=== PATIENT | female | born 1945 | race Caucasian/White ===

== ENCOUNTER 2017-09-26 10:53 | Outpatient (CLI) | payer MEDICARE, OTHER | END 2017-09-26 10:54 | disposition home or self-care (01) | LOC: BICCT 10:53 | PROVIDERS: ATTEND Obstetrics & Gynecology | DX: N20.0 Calculus of kidney (principal); R10.9 Unspecified abdominal pain | CPT/HCPCS: 74176 ==

== ENCOUNTER 2018-03-16 05:47 | Emergency (ER) | payer MEDICARE, OTHER ==
[2018-03-16 06:23] LABS: Bilirubin Large (Negative); Blood, Urine Moderate (Negative); Clarity TURBID (Clear); Glucose, Urine (Dipstick) 250 mg/dL (Negative); Leukocyte Large (Negative); Nitrite Positive (Negative); Protein, Urine (Dipstick) 300 mg/dL (Neg-Trace); Urobilinogen > or = 8.0 mg/dL (0.2-1.0)
[2018-03-16 06:27] LABS: #Eosinphils 0.2 thou/uL (0.0-0.7); #Lymphocytes 1.6 thou/uL (1.20-3.40); #Monocytes 0.9 thou/uL (0.11-0.59); #Neutrophils 7.6 thou/uL (1.40-6.50); %Basophils 0.2 % (0.0-1.0); %Eosinophils 2.3 % (0.0-10.0); %Lymphocytes 15.8 % (21.0-51.0); %Monocytes 8.3 % (0.0-10.0); %Neutrophils 73.4 % (42.0-75.0); Hemoglobin 12.3 g/dL (12.0-16.0); Mean Corpuscular HGB CONC 33.4 g/dL (32.0-36.0); Mean Corpuscular Volume 86.9 fL (78.0-98.0); Mean Platelet Volume 7.7 fL (7.4-10.4); Platelet Count 257 thou/uL (130-400); RBC Distribution Width 12.4 % (11.5-14.5); Red Blood Cell (RBC) Count 4.26 mill/uL (4.20-5.40); White Blood Cell (WBC) Count 10.3 thou/uL (4.8-10.8)
[2018-03-16 06:28] LABS: Bacteria/HPF 2+ HPF (None Seen); Hyaline Casts/LPF 7-10 HYALINE CAST LPF (0-3 Hyaline); Pathc Cast-AUWi Flag 2.43 (0-2.49)
[2018-03-16 06:29] LABS: Yeast-AUWi Flag 5090.2 (0-25.0)
[2018-03-16 06:32] LABS: Yeast-All Forms None Seen HPF (None Seen)
[2018-03-16 06:49] LABS: ALT (SGPT) 72 U/L (8-55); AST (SGOT) 64 U/L (5-34); Albumin 4.4 g/dL (3.4-4.8); Alkaline Phosphatase 72 U/L (40-150); Anion Gap 14 mmol/L (10-20); BUN (Urea Nitrogen) 24 mg/dL (9.8-20.1); Bilirubin, Total 0.8 mg/dL (0.2-1.2); Calc. Creatinine Clearance 0 mL/min (70-130); Carbon Dioxide 22 mmol/L (23-31); Chloride 101 mmol/L (98-107); Estimated GFR-MDRD 38; Globulin 3.1 g/dL (2.4-3.5); Glucose 328 mg/dL (83-110); Lipase 21 U/L (8-78); Potassium 4.1 mmol/L (3.5-5.1); Protein, Total 7.5 g/dL (6.0-8.3); Sodium 133 mmol/L (136-145)
[2018-03-16] MEDS ORDERED: cefTRIAXone\\ROCEPHIN 1 GM VIAL ONE (07:40)
--- NOTE | 2018-03-16 10:49 | CT ---
PRELIMINARY REPORT/[facility]/EMERGENTY AFTER-HOURS PROCEDURE CT Abdomen and Pelvis Without Intravenous Contrast EXAM DATE/TIME: 03/16/2018 7:01 AM CLINICAL HISTORY: 72 years old, female; Pain; Abdominal pain; Localized; Lower; Prior surgery; Patient HX: F72 presents to the ed C/O groin pain for several months, worsening today. PT reports nausea when she stands up. Dx with kidney stone 3 months [employer] boat [employer]. PT reports HX of hysterectomy and exploratory surgery, reports ovaries were removed. TECHNIQUE: Axial computed tomography images of the abdomen and pelvis without intravenous contrast. Coronal reformatted images were created and reviewed. COMPARISON: No relevant prior studies available. FINDINGS: Lower thorax: The visualized portions of the lung bases are normal. ABDOMEN: Liver: There is a diffuse decrease in hepatic parenchymal density, consistent with fatty infiltration . Gallbladder and bile ducts: The gallbladder is normal. There is no evidence of biliary ductal dilatio n. Pancreas: The pancreas appears normal. No ductal dilatation. Spleen: The spleen is normal. Adrenals: The adrenal glands are normal. Kidneys and ureters: There is mild RIGHT hydronephrosis without evidence of obstructing ureteral calc ulus. No LEFT hydronephrosis. There are bilateral nonobstructing renal pelvic calculi. Stomach and bowel: The stomach is normal. The duodenum is unremarkable. The colon is normal. Appendix: No appendix is specifically identified. No associated signs to suggest acute appendicitis. PELVIS: Bladder: The bladder is decompressed but otherwise normal. Reproductive: The uterus is not visualized, and may be atrophic or surgically absent. ABDOMEN and PELVIS: Intraperitoneal space: Normal. No free air. No significant fluid collection. Bones/joints: No acute fracture. No dislocation. Soft tissues: Unremarkable. Vasculature: The vasculature demonstrates diffuse mild atherosclerotic calcification. Lymph nodes: Normal. No enlarged lymph nodes. IMPRESSION: There is mild RIGHT hydronephrosis without evidence of obstructing ureteral calculus. Thank you for allowing us to participate in the care of your patient. Dictated and Authenticated by: Bryan Bowen MD 03/16/2018 7:13 AM Central Time ([place] & [place]) FINAL REPORT CT ABDOMEN AND PELVIS WITHOUT CONTRAST: Date: 03/16/18 FINDINGS/IMPRESSION: I agree with the preliminary report given by Paco. POS: [facility]
== END 2018-03-16 08:00 | disposition home or self-care (01) ==
LOC: ERS 05:47
DX: N39.0 Urinary tract infection, site not specified (principal); M19.90 Unspecified osteoarthritis, unspecified site; E78.5 Hyperlipidemia, unspecified; E11.9 Type 2 diabetes mellitus without complications; F41.9 Anxiety disorder, unspecified; I10 Essential (primary) hypertension; Z79.899 Other long term (current) drug therapy; Z79.82 Long term (current) use of aspirin
CPT/HCPCS: 36415; 74176; 80053; 81003; 81015; 83690; 85025; 87077; 87086; 87186; 96365; J0696

== ENCOUNTER 2018-07-10 16:11 | Emergency (ER) | payer MEDICARE, OTHER ==
[2018-07-10 16:36] LABS: #Monocytes 1.6 thou/uL (0.11-0.59); #Neutrophils 11.7 thou/uL (1.40-6.50); %Basophils 0.3 % (0.0-1.0); %Monocytes 10.3 % (0.0-10.0); %Neutrophils 76.4 % (42.0-75.0); Hemoglobin 11.9 g/dL (12.0-16.0); Mean Corpuscular HGB CONC 33.4 g/dL (32.0-36.0); Mean Corpuscular Hemoglobin 28.9 pg (27.0-31.0); Mean Corpuscular Volume 86.5 fL (78.0-98.0); Mean Platelet Volume 8.1 fL (7.4-10.4); Platelet Count 189 thou/uL (130-400); RBC Distribution Width 12.7 % (11.5-14.5); White Blood Cell (WBC) Count 15.4 thou/uL (4.8-10.8)
[2018-07-10 16:56] LABS: ALT (SGPT) 60 U/L (8-55); AST (SGOT) 41 U/L (5-34); Albumin 4.2 g/dL (3.4-4.8); Alkaline Phosphatase 72 U/L (40-150); Anion Gap 19 mmol/L (10-20); BUN (Urea Nitrogen) 20 mg/dL (9.8-20.1); Bilirubin, Total 1.3 mg/dL (0.2-1.2); Calc. Creatinine Clearance 0 mL/min (70-130); Carbon Dioxide 20 mmol/L (23-31); Chloride 98 mmol/L (98-107); Estimated GFR-MDRD 44; Globulin 3.4 g/dL (2.4-3.5); Glucose 252 mg/dL (83-110); Lipase 10 U/L (8-78); Potassium 4.1 mmol/L (3.5-5.1); Protein, Total 7.6 g/dL (6.0-8.3); Sodium 133 mmol/L (136-145)
[2018-07-10 17:27] LABS: Bilirubin Moderate (Negative); Blood, Urine Moderate (Negative); Clarity CLOUDY (Clear); Glucose, Urine (Dipstick) 250 mg/dL (Negative); Leukocyte Moderate (Negative); Nitrite Negative (Negative); Protein, Urine (Dipstick) 100 mg/dL (Neg-Trace); Specific Gravity, Urine 1.023 (1.002-1.036)
[2018-07-10 17:29] LABS: Bacteria/HPF 4+ HPF (None Seen); Pathc Cast-AUWi Flag 2.17 (0-2.49); Squamous Epithelial 0-3 HPF (0-3)
[2018-07-10 17:38] LABS: WBC/HPF 21-50 HPF (0-3)
[2018-07-10 17:39] LABS: Hyaline Casts/LPF 0-3 HYALINE CAST LPF (0-3 Hyaline)
--- NOTE | 2018-07-10 18:03 | CT ---
NONCONTRAST CT ABDOMEN AND PELVIS 07/10/18 HISTORY: Flank pain with pain in suprapubic region. COMPARISON: 03/16/18. FINDINGS: The liver is borderline enlarged in craniocaudal dimensions measuring 18 cm and demonstrates decrease d attenuation related to diffuse fatty infiltration. There is bilateral perinephric stranding slightly greater on the right. Cortical scarring is again se en involving the posterior mid portion and superior pole of the right kidney. There is mild pelvocali ectasis on the right, but this is similar to prior exams. An approximately 3 mm nonobstructing calcul us is again seen in the superior pole right kidney. No ureteral calculus is seen bilaterally. No izabela nephric fluid collection is identified. However, given asymmetry in inflammatory stranding surroundin g the right kidney, infection/pyelonephritis on the right could not be entirely excluded. There is mi nimal stranding adjacent to the proximal right ureter as well. The urinary bladder is completely decompressed and not well evaluated on this exam. Calcified left hilar lymph node is present with a single calcified granuloma at each lung base. Lung bases otherwise clear. Vascular calcifications are seen in the abdominal aorta involving the iliac arteries. The spleen, pancreas, and bilateral adrenal glands demonstrate a grossly normal nonenhanced CT appear ance. The uterus is not visualized likely related to prior hysterectomy. The appendix is not visualized, but there are no secondary signs to suggest appendicitis. Degenerative changes are seen in the spine. IMPRESSION: 1. Mild inflammatory stranding seen adjacent to each kidney which was also seen on prior exams, but there is slightly greater amount of perinephric stranding on the right. Infection/pyelonephritis on the right could not be excluded based on this examination. 2. No overt hydronephrosis or ureteral calculus is seen. 3. Nonobstructing right renal calculus. 4. Fatty infiltration of the liver with mild hepatomegaly. 5. Prominent vascular calcifications. 6. Hysterectomy. 7. Correlation with urinalysis is recommended. POS: [facility]
== END 2018-07-10 18:04 | disposition home or self-care (01) ==
LOC: ERS 16:11
DX: N12 Tubulo-interstitial nephritis, not specified as acute or chronic (principal); E11.9 Type 2 diabetes mellitus without complications; E78.5 Hyperlipidemia, unspecified; I10 Essential (primary) hypertension; F41.9 Anxiety disorder, unspecified; Z87.891 Personal history of nicotine dependence; Z79.82 Long term (current) use of aspirin; Z79.899 Other long term (current) drug therapy; Z79.84 Long term (current) use of oral hypoglycemic drugs
CPT/HCPCS: 36415; 74176; 80053; 81003; 81015; 83690; 85025; 87077; 87086; 87186

== ENCOUNTER 2019-02-27 13:49 | Emergency (ER) | payer MEDICARE, OTHER ==
--- NOTE | 2019-02-27 15:41 | ULT ---
VENOUS DOPPLER ULTRASOUND OF THE RIGHT LOWER EXTREMITY: 02/27/19 HISTORY: Right lower extremity pain. TECHNIQUE: Wolff scale, with color flow and spectral Doppler imaging of the deep venous system of the right lower extremity was performed. FINDINGS: There is good flow, compression and augmentation noted in the right common femoral, femoral, deep fem oral, popliteal, posterior tibial and greater saphenous veins. Sonographic evaluation of the palpable lump in the dorsal aspect of the right foot demonstrates a com plex mass measuring 9 x 4 x 11 mm of uncertain etiology. This would be better evaluated with an MRI. IMPRESSION: No evidence of DVT in the right lower extremity. POS: [facility]
== END 2019-02-27 16:23 | disposition home or self-care (01) ==
LOC: ERS 13:49
DX: M79.89 Other specified soft tissue disorders (principal); M19.90 Unspecified osteoarthritis, unspecified site; E11.9 Type 2 diabetes mellitus without complications; E78.5 Hyperlipidemia, unspecified; I10 Essential (primary) hypertension; F41.9 Anxiety disorder, unspecified; Z87.891 Personal history of nicotine dependence; Z79.82 Long term (current) use of aspirin; Z79.899 Other long term (current) drug therapy

== ENCOUNTER 2019-05-01 10:15 | Emergency (ER) | payer MEDICARE, OTHER ==
--- NOTE | 2019-05-01 11:59 | RAD ---
EXAM: Portable chest PROVIDED CLINICAL HISTORY: Altered mental status COMPARISON: 07/29/2015 FINDINGS: Cardiac and mediastinal silhouette is within normal limits. No focal consolidation, pleural fluid or pneumothorax evident. IMPRESSION: No evidence for an acute cardiopulmonary process.
--- NOTE | 2019-05-01 12:05 | CT ---
CT BRAIN WITHOUT CONTRAST: HISTORY:Altered mental status. Hallucinations COMPARISON:07/29/2015 FINDINGS: There are foci of decreased attenuation in the periventricular white matter, consistent with chronic small vessel ischemic disease. No evidence of acute infarct, hemorrhage, midline shift or abnormal extra-axial fluid collections is seen. The ventricular size is appropriate and the basilar cisterns are patent. The bony calvarium is intact. The visualized paranasal sinuses and mastoid air cells are well aerated. IMPRESSION: No CT evidence of acute intracranial process.
[2019-05-01 12:37] LABS: #Lymphocytes 0.9 thou/uL (1.20-3.40); #Monocytes 0.9 thou/uL (0.11-0.59); #Neutrophils 8.6 thou/uL (1.40-6.50); %Eosinophils 0.3 % (0.0-10.0); %Lymphocytes 8.7 % (21.0-51.0); Hemoglobin 11.2 g/dL (12.0-16.0); Mean Corpuscular HGB CONC 33.5 g/dL (32.0-36.0); Mean Corpuscular Hemoglobin 29.4 pg (27.0-31.0); Mean Corpuscular Volume 87.8 fL (78.0-98.0); Mean Platelet Volume 8.6 fL (7.4-10.4); Platelet Count 233 thou/uL (130-400); RBC Distribution Width 12.3 % (11.5-14.5); Red Blood Cell (RBC) Count 3.81 mill/uL (4.20-5.40); White Blood Cell (WBC) Count 10.5 thou/uL (4.8-10.8)
[2019-05-01 12:57] LABS: Acetaminophen Less than 6.0 mcg/mL (10.0-30.0); Alcohol Less than 10 mg/dL (Less than 10); Salicylate Less than 8.0 mg/dL (15.0-30.0)
[2019-05-01 12:58] LABS: ALT (SGPT) 24 U/L (8-55); AST (SGOT) 31 U/L (5-34); Albumin 4.1 g/dL (3.4-4.8); Alkaline Phosphatase 73 U/L (40-110); Anion Gap 19 mmol/L (10-20); BUN (Urea Nitrogen) 17 mg/dL (9.8-20.1); Bilirubin, Total 0.5 mg/dL (0.2-1.2); CK (CPK) 207 U/L (29-168); Calc. Creatinine Clearance 0 mL/min (70-130); Calcium 9.3 mg/dL (7.8-10.44); Carbon Dioxide 22 mmol/L (23-31); Chloride 96 mmol/L (98-107); Estimated GFR-MDRD 37; Globulin 2.7 g/dL (2.4-3.5); Glucose 180 mg/dL (83-110); Lipase 18 U/L (8-78); Potassium 3.7 mmol/L (3.5-5.1); Protein, Total 6.8 g/dL (6.0-8.3); Sodium 133 mmol/L (136-145)
[2019-05-01 14:19] LABS: Bilirubin Negative (Negative); Blood, Urine Negative (Negative); Clarity Clear (Clear); Glucose, Urine (Dipstick) 50 mg/dL (Negative); Leukocyte 500 Leu/uL (Negative); Nitrite Negative (Negative); Protein, Urine (Dipstick) 20 mg/dL (Neg-Trace); RBC/HPF 0-3 HPF (0-3); Transitional Epithelial 0-3 HPF (None Seen); Urobilinogen Normal mg/dL (Less than 2); WBC/HPF 21-50 HPF (0-3)
[2019-05-01 14:22] LABS: Bacteria/HPF 1+ HPF (None Seen)
[2019-05-01 14:28] LABS: Amphetamine Not Detected (NotDetected); Barbiturates Screen Not Detected (NotDetected); Benzodiazepine Screen Detected (NotDetected); Cocaine Metabolite Screen Not Detected (NotDetected); Medtox Control Line Valid? VALID (VALID); Medtox Reader # READER 1; Methadone Not Detected (NotDetected); Methamphetamine Not Detected (NotDetected); Opiate Screen Not Detected (NotDetected); Oxycodone Screen Not Detected (NotDetected); Phencyclidine (PCP) Not Detected (NotDetected); THC/Cannabinoid Screen Not Detected (NotDetected); Tricyclic Screen Not Detected (NotDetected)
== END 2019-05-01 14:40 | disposition home or self-care (01) ==
LOC: ERS 10:15
DX: R44.3 Hallucinations, unspecified (principal); N30.00 Acute cystitis without hematuria; E11.9 Type 2 diabetes mellitus without complications; M19.90 Unspecified osteoarthritis, unspecified site; E78.5 Hyperlipidemia, unspecified; I10 Essential (primary) hypertension; F41.9 Anxiety disorder, unspecified; Z87.891 Personal history of nicotine dependence; Z79.82 Long term (current) use of aspirin; Z79.899 Other long term (current) drug therapy
CPT/HCPCS: 36415; 70450; 71045; 80053; 80306; 80307; 81003; 81015; 82140; 82550; 83690; 83880; 84443; 84484; 85025; 87040; 93005; 96360; 96361

== ENCOUNTER 2019-09-01 06:31 | Emergency (ER) | payer MEDICARE ==
[2019-09-01] MEDS ORDERED: Ondansetron ODT 8 MG TAB ONE (06:52)
--- NOTE | 2019-09-01 07:44 | CT ---
CT head noncontrast HISTORY: Injury. Headache. COMPARISON: 05/01/2019. FINDINGS: There is no evidence of acute intracranial hemorrhage or infarct. Mild diffuse cortical atr ophy and chronic ischemic small vessel disease, stable. There is no mass effect or shift of midline structures. Visualized paranasal sinuses remain well aera cristian. IMPRESSION : No acute intracranial abnormalities are demonstrated. Chronic-type findings are stable.
--- NOTE | 2019-09-01 07:51 | CT ---
EXAM: CT cervical spine PROVIDED CLINICAL HISTORY: Trauma. Headache. Nausea and vomiting. TECHNIQUE: Contiguous axial CT images are obtained through the cervical spine from the skull base to the T2-3 le alex. Sagittal and coronal reformatted images are provided. COMPARISON: None FINDINGS: There is anterolisthesis of C4 on C5 measuring approximately 3 mm likely related to prominent facet d egenerative changes at this level. No additional level of subluxation is seen. The vertebral body heights are within normal limits, and no fracture is visualized. There is fusion o f the C5 and C6 vertebral bodies. Multilevel degenerative changes are present with prominent facet hypertrophic changes as well as post erior osteophyte formation resulting in severe right and moderate left-sided neural foraminal narrowing at C3-4 level, severe bilateral neural foraminal narrowing at C4-5 level, and moderate left and mild right-sided neural foraminal narrowing at C6-7 level. No prevertebral soft tissue swelling apparent. Visualized lung apices appear clear. Visualized thyroid gland demonstrates a grossly normal nonenhanced CT appearance. Vascular calcifications are seen in visualized aortic arch and in the visualized carotid arteries. IMPRESSION: 1. Multilevel degenerative changes with moderate to severe degrees of neural foraminal narrowing at m ultiple levels primarily related to posterior osteophyte formation and facet hypertrophic changes. 2. Anterolisthesis of C4 on C5 likely on a degenerative basis. Prominent facet degenerative changes. 3. Fusion of C5 and C6 vertebral bodies.. 4. No fracture is visualized.
== END 2019-09-01 08:17 | disposition home or self-care (01) ==
LOC: ERS 06:31
DX: S06.0X9A Concussion with loss of consciousness of unspecified duration, initial encounter (principal); E11.9 Type 2 diabetes mellitus without complications; E78.5 Hyperlipidemia, unspecified; I10 Essential (primary) hypertension; F41.9 Anxiety disorder, unspecified; Z87.891 Personal history of nicotine dependence; Z79.82 Long term (current) use of aspirin; Z79.899 Other long term (current) drug therapy; W22.8XXA Striking against or struck by other objects, initial encounter
CPT/HCPCS: 70450; 72125; Q0162

== ENCOUNTER 2020-05-25 08:52 | Outpatient (CLI) | payer MEDICARE ==
[2020-05-25] MEDS ORDERED: Iopamidol 370 76% 100 ML VIAL ONE (10:27)
--- NOTE | 2020-05-25 11:01 | CT ---
CT ABDOMEN AND PELVIS WITH ORAL AND IV CONTRAST: Date: 05/25/2020 HISTORY: Epigastric pain. FINDINGS: A tiny calcified granuloma is seen in the peripheral aspect of the left lower lobe, which is stable s figueroa 03/16/2018. There is fatty infiltration of the liver without focal mass or abnormal biliary duct al dilatation. No calcified gallstones are seen. The spleen, pancreas, and adrenal glands are normal. There is mild scarring in the kidneys. No free air, free fluid, or lymphadenopathy noted in the abdomen or pelvis. There are vascular calcif ications without evidence of aneurysmal dilatation of the abdominal aorta. The patient is post hyster ectomy. Degenerative changes are present in the spine. An abnormal appendix is not visualized. IMPRESSION: 1. Fatty liver. 2. No evidence of acute process. POS: OFF
== END 2020-05-25 08:53 | disposition home or self-care (01) ==
LOC: CT 08:52
PROVIDERS: ATTEND Internal Medicine Gastroenterology
DX: R10.13 Epigastric pain (principal); R63.4 Abnormal weight loss; K76.0 Fatty (change of) liver, not elsewhere classified
CPT/HCPCS: 74177; 82565; Q9967